=== PATIENT | male | born 1960 | race Caucasian/White ===

== ENCOUNTER 2017-12-23 07:31 | Emergency (ER) | payer BC, OTHER ==
[~2017-12-23] VITALS: Ht 177.8 cm; Wt 97.0 kg
[~2017-12-23 07:31] MED LIST: NO MEDICATION
[2017-12-23 07:32] VITALS: TEMP 37; Ht 177.8 cm; Wt 97.0 kg
[2017-12-23] MEDS ORDERED: ESOM20CA PO (08:11)
[2017-12-23] MEDS ORDERED: SODIUM CHLORIDE 0.9% 1000ML 1,000 ML IV STA (08:17)
[2017-12-23 08:38] LABS: BASO % 0.3 %; BASO ABS # 0.03 K/uL (0-0.2); EOS % 0.7 %; EOS ABS # 0.08 K/uL (0-0.5); HEMATOCRIT 42.6 % (42-52); HEMOGLOBIN 15.3 g/dL (14.0-18.0); IG# 0.03 K/uL (0.00-0.02); LYMPH % 9.3 %; LYMPH ABS # 1.05 K/uL (1.2-3.4); MEAN CELL VOLUME 89.5 fL (80-100); MEAN CORPUSCULAR HEMOGLOBIN 32.1 pg (25-34); MEAN CORPUSCULAR HGB CONC 35.9 g/dl (32-36); MEAN PLATELET VOLUME 9.7 fL (7.4-10.4); MONO % 8.4 %; MONO ABS # 0.95 K/uL (0.11-0.59); NEUT ABS # 9.19 K/uL (1.4-6.5); PLATELET COUNT 256 K/uL (130-400); RED CELL DISTRIBUTION WIDTH CV 12.8 % (11.5-14.5); RED CELL DISTRIBUTION WIDTH SD 42.1 fL (36.4-46.3); WHITE BLOOD COUNT 11.33 K/uL (4.8-10.8)
[2017-12-23 08:51] LABS: ALBUMIN 3.9 gm/dl (3.4-5.0); CALCIUM 8.8 mg/dl (8.5-10.1); CREATININE 1.32 mg/dl (0.60-1.40); POTASSIUM 4.2 mmol/L (3.5-5.1)
[2017-12-23 08:54] LABS: TOTAL PROTEIN 7.5 gm/dl (6.4-8.2)
[2017-12-23] MEDS ORDERED: OPTIRAY 320 IV PRN (09:15)
--- NOTE | 2017-12-23 09:43 | DIAGNOSTIC IMAGING REPORT ---
CT OF THE ABDOMEN AND PELVIS WITH CONTRAST CLINICAL HISTORY: Left lower quadrant abdominal pain. COMPARISON STUDY: None. TECHNIQUE: Following IV administration of 93 mL of Optiray-320, axial images of the abdomen and pelvis were obtained from the lung bases to the proximal femurs. Images were reviewed in the axial, sagittal, and coronal planes. IV contrast was administered without complication. A dose lowering technique was utilized adhering to the principles of ALARA. CT DOSE: 574.27 mGy.cm FINDINGS: Lung bases are clear. There is fatty infiltration of the liver. Liver morphology is normal. Note is made of a 2.2 cm segment 6 hepatic cyst. There is a small hiatal hernia. The spleen, adrenal glands and pancreas are normal. There is no hydronephrosis. Note is made of a 3.3 x 3.2 x 2.9 cm hyperdense lesion within the mid aspect of the left renal pelvis which extends to the cortex. There are numerous additional bilateral renal lesions. The majority, if not all, of these reflect cysts. Several subcentimeter renal lesions are too small to characterize. The appendix is normal. There is no evidence for a bowel obstruction. Note is made of moderate circumferential wall thickening of the mid sigmoid colon with moderate adjacent inflammation. There is colonic diverticulosis. There is no free air or abscess. No suspicious osseous lesions are present. Prostate is moderately enlarged. There is a fat-containing left inguinal hernia. IMPRESSION: 1. Acute diverticulitis of the mid descending colon. Moderate colonic wall thickening and pericolonic infiltration. No free air or abscess. 2. Indeterminate 3.3 cm hypodense lesion within the left renal pelvis which extends to the cortex. This could reflect a solid renal lesion or hyperdense cyst. A follow-up nonemergent renal protocol MRI is recommended. 3. Fatty liver. 4. Moderate enlargement of the prostate. 5. Fat-containing left inguinal hernia. Electronically signed by: Manfred Costello M.D. 12/23/2017 9:42 AM Dictated Date/Time: 12/23/2017 9:34 AM
[2017-12-23] MEDS ORDERED: CIPR1TAB10 PO (10:13)
[2017-12-23] MEDS ORDERED: METR-163 PO (10:13)
[2017-12-23 10:27] VITALS: BP 144/84; PULSE 73; O2SAT 99
--- NOTE | 2017-12-23 15:45 | EMERGENCY ROOM VISIT NOTE ---
ED Visit Note First contact with patient: 07:38 Chief Complaint: Abdominal pain. History of Present Illness: Mr. Nick is a 57 year-old white male who ambulates into the ED accompanied by his complaining of left lower quadrant abdominal pain. Historically patient reports no history of gastrointestinal diseases or abdominal surgeries. He reports he had a colonoscopy in 2013 and was told he had no significant findings. Patient reports last evening before bedtime he started having diffuse discomfort in his abdomen that he is calling gas pains. His discomfort was mild. He was able to go to bed and then reports he was awoken from sleep at approximately 2:30 AM, approximately 5 hours ago, he was awoken from sleep with an acute onset of worsening pain. Now the pain is focused in the left lower quadrant. He describes his discomfort as a sharp, like a pulled muscle, pain. He rates his discomfort 5/10. His pain is nonradiating. His pain worsens with palpation, stretching out his abdomen, laughing, coughing and ambulation. His pain is slightly improved when he draws his lower legs up towards his abdomen or sitting down. He has not taken any medications for pain prior to arrival at the hospital. He denies any associated fevers, chills, sweats, skin eruptions, skin color changes, upper respiratory tract symptoms, shortness of breath, chest pain, nausea, vomiting, diarrhea, constipation, rectal bleeding, black/ tarry stools, urinary symptoms, hematuria, back/flank pain. Additionally patient reports last week he noticed some indigestion-like symptoms in the epigastric area with nausea but no vomiting. He reports he has started himself on [id number] Nexium and has had relief of his discomfort for the last 3 days. Review of Systems: As noted above in history of present illness. All body systems were reviewed and found to be negative as noted above. Past Medical History: Status post unspecified knee surgery and toe amputation. Current Medications: Nexium. Allergies to Medications: Patient denies. Social History: Patient is currently employed; he lives with his and feels safe in his home environment; he admits to tobacco and alcohol use. Physical Examination: Vital Signs: Date Time Temp Pulse Resp B/P (MAP) Pulse Ox O2 Delivery O2 Flow Rate FiO2 12/23/17 10:27 73 16 144/84 99 12/23/17 09:16 73 16 170/91 97 Room Air 12/23/17 07:32 37.0 94 20 138/95 97 Room Air GENERAL: 57-year-old male in mild distress due to pain, nontoxic-appearing, afebrile and hemodynamically stable. NEUROLOGICAL: Awake, alert and oriented to person, place and time. Answering questions appropriately and following commands. Normal gait. Good hand eye coordination. SKIN: Warm, dry and pink. No soft tissue eruptions or trauma noted. HEENT: Atraumatic and normocephalic. PERRLA. Sclera white and conjunctiva pink. Oral cavity moist and pink. Pharynx is nonerythematous or edematous. Speech normal. No lymphadenopathy. Trachea midline. No jugular venous distention. BACK: No tenderness over the bony spine. No CVA tenderness. THORAX: Lungs sounds are clear to auscultation and equal bilaterally with symmetrical chest wall. No wheezing, rales or rhonchi. No crepitus, tenderness , subcutaneous air or deformities noted. HEART: Regular rate and rhythm. No gallops, rubs or murmurs are appreciated. ABDOMEN: Flat and soft with moderate left lower quadrant pain. Positive bowel sounds in all quadrants. No guarding, rigidity or organomegaly. EXTREMITIES: Moves all extremities well on command and with purpose. All distal neurovascular statuses are intact and equal bilaterally. ED Course: Patient is assessed as noted above. Patient's medication list was reviewed Laboratory Testing: Test 12/23/17 08:25 12/23/17 10:00 Range/Units White Blood Count 11.33 4.8-10.8 K/uL Red Blood Count 4.76 4.7-6.1 M/uL Hemoglobin 15.3 14.0-18.0 g/dL Hematocrit 42.6 42-52 % Mean Corpuscular Volume 89.5 80-100 fL Mean Corpuscular Hemoglobin 32.1 25-34 pg Mean Corpuscular Hemoglobin Concent 35.9 32-36 g/dl Platelet Count 256 130-400 K/uL Mean Platelet Volume 9.7 7.4-10.4 fL Neutrophils (%) (Auto) 81.0 % Lymphocytes (%) (Auto) 9.3 % Monocytes (%) (Auto) 8.4 % Eosinophils (%) (Auto) 0.7 % Basophils (%) (Auto) 0.3 % Neutrophils # (Auto) 9.19 1.4-6.5 K/uL Lymphocytes # (Auto) 1.05 1.2-3.4 K/uL Monocytes # (Auto) 0.95 0.11-0.59 K/uL Eosinophils # (Auto) 0.08 0-0.5 K/uL Basophils # (Auto) 0.03 0-0.2 K/uL RDW Standard Deviation 42.1 36.4-46.3 fL RDW Coefficient of Variation 12.8 11.5-14.5 % Immature Granulocyte % (Auto) 0.3 % Immature Granulocyte # (Auto) 0.03 0.00-0.02 K/uL Sodium Level 135 136-145 mmol/L Potassium Level 4.2 3.5-5.1 mmol/L Chloride Level 106 98-107 mmol/L Carbon Dioxide Level 25 21-32 mmol/L Anion Gap 4.0 3-11 mmol/L Blood Urea Nitrogen 21 7-18 mg/dl Creatinine 1.32 0.60-1.40 mg/dl Est Creatinine Clear Calc Drug Dose 73.9 ml/min Estimated GFR () 69.9 Estimated GFR (Non- 60.3 BUN/Creatinine Ratio 16.1 10-20 Random Glucose 96 70-99 mg/dl Calcium Level 8.8 8.5-10.1 mg/dl Total Bilirubin 0.8 0.2-1 mg/dl Direct Bilirubin 0.1 0-0.2 mg/dl Aspartate Amino Transf (AST/SGOT) 19 15-37 U/L Alanine Aminotransferase (ALT/SGPT) 39 12-78 U/L Alkaline Phosphatase 47 45-117 U/L Total Protein 7.5 6.4-8.2 gm/dl Albumin 3.9 3.4-5.0 gm/dl Lipase 183 73-393 U/L Urine Color YELLOW Urine Appearance CLEAR CLEAR Urine pH 7.5 4.5-7.5 Urine Specific [place] 1.033 1.000-1.030 Urine Protein NEG NEG Urine Glucose (UA) NEG NEG Urine Ketones NEG NEG Urine Occult Blood NEG NEG Urine Nitrite NEG NEG Urine Bilirubin NEG NEG Urine Urobilinogen NEG NEG Urine Leukocyte Esterase NEG NEG IV Contrast Abdominal/Pelvic CT: Was reviewed by myself and read by the radiologist showing acute diverticulitis of the mid to descending colon with moderate colonic wall thickening and pericolonic infiltration but no free air or abscess. 3.3 cm indeterminate hypodense lesion within the left renal pelvis extending to the cortex. Fatty liver disease. Enlargement of the prostrate gland. Fat-containing left inguinal hernia. Patient was hydrated with normal saline; he was offered pain medications multiple times and refused. Patient's case was reviewed with Dr. Barboza; we agreed on diagnostic approach , treatment, disposition plan. Patient was educated about today's findings and instructed on his treatment plan ; he verbalizes understanding and agreement with this plan. Clinical Impression: Acute diverticulitis. Left renal nodule. Decision-Making: Initially my differential diagnosis I considered diverticulitis , kidney stone, pyelonephritis, colitis, and other causes. Disposition: Patient discharged home in stable condition accompanied by his ; prior to departure he was reassessed and subjectively reported he was feeling better and rated his discomfort 2/10. Plan: Patient was encouraged alternate ibuprofen and acetaminophen every 3 hours as needed for pain. Patient was prescribed Flagyl 500 mg 3 times a day for 10 days and ciprofloxacin 500 mg 2 times a day for 10 days. Patient was encouraged to stay well-hydrated with increased clear fluids. Patient was encouraged to follow-up with primary care provider for recheck in 3- 4 days as well as further evaluation of his renal nodule. Patient was encouraged return to the ED for worsening/uncontrolled pain, fevers , bloody stools or any new/concerning symptoms.
== END 2017-12-23 10:28 | disposition home or self-care (01) ==
LOC: C.EDB 07:32
DX: K57.32 Diverticulitis of large intestine without perforation or abscess without bleeding (principal); N28.9 Disorder of kidney and ureter, unspecified; Z79.899 Other long term (current) drug therapy; Z72.0 Tobacco use

== ENCOUNTER → 2018-01-09 | Outpatient (CLI) | payer OTHER ==
[~2018-01-09] MED LIST changes: +ESOM20CA PO; +GADAVIST IV PRN; -NO MEDICATION
--- NOTE | 2018-01-09 10:09 | DIAGNOSTIC IMAGING REPORT ---
ABDOMEN COMBO CLINICAL HISTORY: 57 years-old Male presenting with NODULE ON KIDNEY. TECHNIQUE: Multisequence, multiplanar MR imaging of the abdomen was performed before and after the administration of intravenous contrast. IV contrast: 9.5 mL of Gadavist. COMPARISON: CT from 12/23/2017. FINDINGS: Localizer images: Unremarkable. Lung bases: Lungs and pleural spaces clear. Normal heart size. No pericardial or pleural effusion. Liver: Normal morphology. Multilobular T2 hyperintense nonenhancing lesions compatible with hepatic cysts. Hepatic fat fraction measures 22.1%, consistent with moderate steatosis. Patent hepatic vasculature. Biliary: No intrahepatic or extrahepatic biliary ductal dilatation. Normal gallbladder. 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 No pancreatic ductal dilatation. Spleen: Normal. Adrenal glands: Normal. Kidneys and ureters: Solid T2 hypointense T1 hyperintense nonenhancing 2.8 cm circumscribed mass in the interpolar region of the left kidney centered in the renal medulla. No hydronephrosis. Several simple cysts also noted. Bowel: Normal. No bowel obstruction. Peritoneal cavity: No free fluid or intraperitoneal gas. Lymph nodes: No enlarged lymph nodes in the abdomen. Vasculature: Aorta and IVC patent and normal in caliber. Abdominal wall: Normal. Musculoskeletal: Normal. IMPRESSION: 1. 2.8 cm nonenhancing intrinsically T1 hyperintense lesion in the left kidney consistent with hemorrhagic or proteinaceous cyst. No suspicious renal neoplasm. 2. Moderate hepatic steatosis. Electronically signed by: Justin Ny M.D. 01/09/2018 10:08 AM Dictated Date/Time: 01/09/2018 10:00 AM
== END | disposition home or self-care (01) ==
LOC: C.MRI 08:57
PROVIDERS: ATTEND Family Medicine
DX: N28.89 Other specified disorders of kidney and ureter (principal)